=== PATIENT | male | born 1970 | race Asian ===

== ENCOUNTER 2019-12-29 19:39 | Inpatient (IN) | payer OTHER ==
[~2019-12-29] VITALS: Ht 167.6 cm; Wt 59.0 kg
--- NOTE | 2019-12-29 19:39 | NUR ---
Placed in room 03 . Placed on surveillance system monitor, blood pressure machine and pulse oximeter. To gown for exam. Side rails up.
--- NOTE | 2019-12-29 19:40 | NUR ---
ER Dr. Brizuela at bedside examining patient.
--- NOTE | 2019-12-29 19:40 | NUR ---
#20 gauge angiocatheter placed to R wrist. Use of asceptic technique. Tegaderm placed over site. Blood return noted. Blood for lab drawn from site. Flushed with 10 mL of normal saline. No evidence of infiltration noted. Patient tolerated well.
[2019-12-29 19:42] VITALS: BP_SYST 163
--- NOTE | 2019-12-29 20:00 | NUR ---
Patient BIB ACLS from [facility] with complaints of chest pain, which was communicated through eye blinking according to his . Patient is nonverbal with history of cerebral infarct, tracheostomy tube s/p respiratory distress, quadriplegia, and encephalopathy. Patient also has a recent history of pneumonia, which is treated with Rx for Levaquin. PEG tube to abdomen is also noted. Even chest rise and fall with respirations. Will continue to monitor.
[2019-12-29] MEDS ORDERED: CLONIDINE PATCH TD (20:14)
[2019-12-29] MEDS ORDERED: ASA81 GT (20:14)
[2019-12-29] MEDS ORDERED: CHLO237L3 DT (20:14)
[2019-12-29] MEDS ORDERED: ACID1CAP GT (20:14)
[2019-12-29] MEDS ORDERED: [UNRECOGNIZED DRUG - REMARK] GT (20:14)
[2019-12-29] MEDS ORDERED: ATROVENT IH ×2 (20:14)
[2019-12-29] MEDS ORDERED: HYDR-4037 GT (20:14)
[2019-12-29] MEDS ORDERED: CAT.1 GT (20:14)
[2019-12-29] MEDS ORDERED: ALBU2.5V7 INH ×2 (20:14)
[2019-12-29] MEDS ORDERED: CARV25TA55 GT ×2 (20:14)
[2019-12-29] MEDS ORDERED: MULT-976 GT (20:14)
[2019-12-29] MEDS ORDERED: TYLL650 GT (20:14)
[2019-12-29] MEDS ORDERED: ASCO500S10 GT (20:14)
[2019-12-29] MEDS ORDERED: LANS15CA14 GT (20:14)
[2019-12-29] MEDS ORDERED: DOCU-144 GT (20:14)
--- NOTE | 2019-12-29 20:17 | NUR ---
Medication reconciliation completed with information provided by list from facility. Any prior medication reconciliation on file was reviewed and corrected.
[2019-12-29 20:18] LABS: HEMATOCRIT 39.6 % (36-54); HEMOGLOBIN 13.2 g/dL (14.0-18.0); MEAN CORPUSCULAR HEMOGLOBIN 29 pg (27-31); MEAN CORPUSCULAR HGB CONC 33 % (32-36); MEAN CORPUSCULAR VOLUME 86 fL (79.0-98.0); PLATELET COUNT (AUTO) 443 K/uL (130-430); RED BLOOD CELL COUNT(AUTO) 4.62 MIL/uL (4.2-6.2); RED CELL DISTRIBUTION WIDTH 13.6 % (9.0-15.0); WHITE BLOOD COUNT (AUTO) 15.7 K/uL (4.8-10.8)
[2019-12-29 20:25] LABS: CALCIUM 8.4 mg/dL (8.4-11.0); CREATININE 0.85 mg/dL (0.55-1.30); POTASSIUM 3.7 mmol/L (3.5-5.1)
[2019-12-29 20:26] LABS: PROTHROMBIN TIME 9.9 SECS (9.5-12.5)
[2019-12-29 20:30] LABS: ALBUMIN 3.3 g/dL (3.4-4.8); TOTAL BILIRUBIN 0.2 mg/dL (0.0-1.0)
[2019-12-29 20:35] LABS: BAND % (MANUAL) 1 % (0-6); BASOPHILS % (MANUAL) 0 % (0-2); EOSINOPHILS % (MANUAL) 2 % (0-7); LYMPHOCYTES % (MANUAL) 14 % (20-46); METAMYELOCYTES % 1 % (0-0); MONOCYTES % (MANUAL) 5 % (0-11)
[2019-12-29 20:53] LABS: BILIRUBIN,URINE NEGATIVE (NEGATIVE); BLOOD, URINE NEGATIVE (NEGATIVE); CLARITY/URINE CLEAR (CLEAR); COLOR,URINE YELLOW (YELLOW); GLUCOSE,URINE NEGATIVE (NEGATIVE); KETONES,URINE NEGATIVE (NEGATIVE); LEUKOCYTE ESTERASE ,URINE NEGATIVE (NEGATIVE); NITRITE, URINE NEGATIVE (NEGATIVE); PH,URINE 6.5 (5.0-8.0); PROTEIN URINE TRACE (NEGATIVE); UROBILINOGEN,URINE 0.2 (0.2-1.0)
[2019-12-29 20:59] LABS: RBC,URINE 0-3 /HPF (0-3)
[2019-12-29 21:00] LABS: BACTERIA,URINE FEW /HPF (None Seen); WBC,URINE 0-3 /HPF (0-3)
--- NOTE | 2019-12-29 21:16 | NUR ---
nuclear medicine technologist at bedside for xray.
--- NOTE | 2019-12-29 23:44 | NUR ---
ADMISSION NOTE Received patient from ER via gurney. Patient admitted with diagnosis of Pneumonia. Patient is awake, alert, non-verbal. Patient oriented to hospital room, call light, toileting, pain management and safety-teach back done. Patient informed that JAIRO Jain will be primary nurse and that their room number is 103B. Personal belongings checked and Belongings List documented. Call light within reach.
[2019-12-29 23:50] VITALS: BP_SYST 159
[2019-12-30] VITALS (7 sets, daily range): BP systolic 123–159
--- NOTE | 2019-12-30 | NUR ---
pt.admitted via the er-depot.from the hospital/facility:dejon cevallos;admit dxa;pna.pt.presents quadraplegic status.pt.presents trach;portex;#7.r/t has set up o2 therapy via t-bar;rate;3l/min w humidied air.o2sat%=98%.pt.asphasic.pt.presents g-tube;intact;dsg intact.pt.presents iv access intact;patent;location rt.hand.i have noted the labs;wnl.i have noted the 's admit orders;pt.to receive saravanan administration:g-tube feed;VITAL.IV FLUIDS;D5/45NS W K+20MEQ'S,ABXA;VANCOMYCIN/ZOSYN.PT. CUtANeOus INTeGRITY assessed;pt.presents x3 wounds;rt.buttocks:scars;old healed.sacrum:wound;denuded skin/photos taken to v/s assessed:b/p values elevated;to apprise .call light/telephone placed w/in reach of the pt/
[2019-12-30] MEDS ORDERED: PIPERACILLIN/TAZOBACTAM 3.375 GM/VIAL (ZOSYN) IV ONE ×2 (00:17→06:14)
[2019-12-30] MEDS ORDERED: KCL 20 mEq in D5/0.45NS 1000mL 1,000 ML IV ONE (00:17)
[2019-12-30] MEDS ORDERED: VANCOMYCIN HCL 1000 MG/VIAL IV ONE (00:17)
[2019-12-30] MEDS ORDERED: VANCOMYCIN HCL 1 GM/NS PREMIX 250 ML IV SCH (00:30)
[2019-12-30] MEDS ORDERED: amLODIPine BESYLATE 10 MG TABLET GT ONE (01:00)
--- NOTE | 2019-12-30 01:00 | NUR ---
pt.assessed.i have initiated the g-tube feed;vital:rate:60ml/hr.i have initiated the administration iv fluids via peripheral access;RT.HAND.rATE;60ML/HR.i have initiated th administration;abx;zosyn/vancomycin ivpb.pt.assessed for cleanliness. pt,cleaned. returned the page.i apprised of the pt's b/p values;elevated. had ordered;norvasc; 10mg via g-tube ax1 clonidine;0.1mg via g-tubecsb/.p>150.i have administered the norvasc;[id number] the b;p values.
[2019-12-30] MEDS: PIPERACILLIN/TAZO 3.375/DEX-IS 50 ML IV SCH ×4 (01:25→17:27)
[2019-12-30] MEDS: KCL 20 mEq in D5/0.45NS 1000mL 1,000 ML IV SCH ×2 (01:25→11:26)
--- NOTE | 2019-12-30 02:00 | NUR ---
pt.assessed.pt assessed for cleanliness.-pt.repositioned.g-tube intact;patent:g-tube feed infusing.iv access intact;patent iv fluids infusing. condom-cath in place;urine content present.general status stable.respiratory status stable;o2-sat%=98%.i have attended to the oral trach care suction.call light/telephone placed w/in reach of the pt.
--- NOTE | 2019-12-30 04:00 | NUR ---
pt.assessed.pt.presents quiescent affect;calm,somnolent.per flacc;pain mgx;pt.absent facial grimaces/body posturing.g-tube intact;patent g-tube feed infusing.iv access line intact;patent iv fluids infusing.i have attended to the oral/trach care/ suction.general status stable.respiratory status stable;o2-sat%=98%call light/telephone placed w/in reach of the pt.
--- NOTE | 2019-12-30 06:16 | NUR ---
pt.assessed.v/s assessed;values w/in normal limits.b/p values decreased post the administration of the norvasc;10mg. pt.assessed for cleanliness.pt.repositioned.g-tube intact;patent;g-tube feed infusing;residuals:5mls.iv access intact; patent iv fluids infusing.condom cath intact;urine content present.general status stable.respiratory status stable.02- sat%=98%.call light/telephone placed w/in reach of the pt.per flacc;pain mgx;pt.absent facial grimaces/body posturing.
--- NOTE | 2019-12-30 06:46 | NUR ---
Nutrition Update Denzel Scale 11 noted. Pt admitted for Pneumonia Diet: Vital AF 1.2 at 60ml/hr, FWF 30ml via GT BMI: 21 kg/m2 RD to follow per nutrition care standards.
--- NOTE | 2019-12-30 07:30 | NUR ---
OPENING NOTES: RECEIVED PATIENT FROM ABORIGINAL COMMUNITY COUNCIL MEMBER NURSE. PATIENT IS AWAKE AND ALERT x1 LAYING DOWN IN BED. PATIENT IS TOLERATING OXYGEN ON T-BAR AT 3L. NO SIGNS OF DISTRESS OR SHORTNESS OF BREATH NOTED. PATIENT WAS SUCTIONED AND TOLERATED IT WELL. IV SITE IS PATENT WITH NO SIGNS OF INFILTRATION NOTED. CONDOM CATHETER INTACT AND DRAINING BY GRAVITY. G-TUBE INTACT WITH CLEAN, DRY DRESSING AND RUNNING FEEDING ORDERED. PATIENT IN STABLE CONDITION. SAFETY, FALL, AND ASPIRATION PRECAUTIONS ARE IN PLACE. BED IS LOCKED IN LOWEST POSITION WITH CALL LIGHT IN REACH. WILL CONTINUE TO MONITOR PATIENT FOR ANY CHANGES.
[2019-12-30] MEDS: LevALBUTEROL HCL 1.25 MG/0.5 ML *CONC.* VIAL.NEB (XOPENEX CONC.) INH PRN ×2 (09:28→13:19)
--- NOTE | 2019-12-30 10:17 | NUR ---
RN ROUNDS: PATIENT IS AWAKE AND ALERT x1 LAYING DOWN IN BED. PATIENT IS TOLERATING OXYGEN AT 5 L VIA T-BAR. NO SIGNS OF DISTRESS OR SHORTNESS OF BREATH NOTED. PATIENT IN STABLE CONDITION. WILL CONTINUE TO MONITOR PATIENT FOR ANY CHANGES.
--- NOTE | 2019-12-30 11:32 | NUR ---
Dietitian Recommendations *Recommend: Vital AF 1.2 at 60ml/hr, Kulwinder BID, FWF 150ml Q6H via GT Provides: 1888 kcal, 113 gm protein and 1768ml free water daily. Meets: 94% of upper end of estimated calorie needs and 115% of upper end of estimated protein needs. Please see Nutritional Assessment for details. IMTIAZ, RD
--- NOTE | 2019-12-30 12:10 | NUR ---
RN ROUNDS: PATIENT IS AWAKE AND ALERT x1 LAYING DOWN IN BED. FAMILY AT BEDSIDE. PATIENT WAS SUCTIONED AND TOLERATED IT WELL. NO SIGNS OF DISTRESS OR SHORTNESS OF BREATH NOTED. PATIENT IN STABLE CONDITION. WILL CONTINUE TO MONITOR PATIENT FOR ANY CHANGES.
--- NOTE | 2019-12-30 14:14 | NUR ---
RN ROUNDS: PATIENT IS AWAKE AND ALERT x1 LAYING DOWN IN BED. FAMILY AT BEDSIDE. PATIENT WAS SUCTIONED AND TOLERATED IT WE.. NO SIGNS OF DISTRESS OR SHORTNESS OF BREATH NOTED. PATIENT IS TOLERATING OXYGEN AT 3L NASAL CANNULA. IV SITE PATENT WITH NO SIGNS OF INFILTRATION. PATIENT IN STABLE CONDITION. WILL CONTINUE TO MONITOR PATIENT FOR ANY CHANGES.
--- NOTE | 2019-12-30 14:20 | NUR ---
WOUND EVALUATION: Wound Consult received from Dr. Pinzon. Thank you Dr. Pinzon for the consult. Patient received in a Rhodelia Bed with an IsoFlex MEREDITH mattress with low air loss therapy initiated, awake, alert, non-verbal. Patient is unable to turn in bed independently. Denzel Score is an 11. Past Medical History: Cerebrovascular Accident, Hypertension, Chronic Respiratory Failure, Encephalopathy, G-tube, Tracheostomy. Recent Labs: WBC 15.7, RBC 4.62, hemoglobin 13.2, hematocrit 39.6, BUN 23, creatinine 0.85, GFR 102, glucose 102, albumin 3.3, PTT 25.2. Intrinsic factors that delay wound healing: Chronic Respiratory Failure, Encephalopathy, Hypoalbuminemia. Extrinsic factors that delay wound healing: Decreased mobility. Wound Assessment: 1. Right buttock: Wound, present on admission. Wound bed has 100% black scab. No odor, no drainage. Periwound intact. Small portion of scab is flaking off with intact skin underneath. Wound measures 2.5 cm x 1.5 cm. Recommend: Cover site with 4x4 foam dressing. Apply moisture barrier cream in between dressing and perianal area. Change dressing and assess site to 24 hours. 2. Left buttock near ischium: Scar tissue, present on admission. Recommend: Cleanse involved area with mild soap and water. Pat dry. Apply moisture barrier cream to involved area. Perform site care 4 times a day, and as needed for soiling. Also recommend: Reposition patient side to side only every 2 hours with pillow support and off-load pressure areas with pillows for pressure re-distribution. Offload, elevate and float bilateral heels with pillows. Perform skin care and monitor skin integrity Q shift. Use moisture barrier cream on buttocks and other moisture susceptible areas QID and as needed for soiling. Maintain patient on a low air-loss mattress.
[2019-12-30] MEDS ORDERED: cloNIDine HCL 0.1 MG TABLET GT PRN (15:15)
[2019-12-30] MEDS ORDERED: IPRATROPIUM BROM 0.5 MG/2.5 ML VIAL.NEB (ATROVENT) INH PRN (15:15)
[2019-12-30] MEDS ORDERED: ACETAMINOPHEN 650 MG/20.3 ML UDC GT PRN (15:15)
--- NOTE | 2019-12-30 16:08 | NUR ---
RN ROUNDS: PATIENT IS AWAKE AND ALERT x1 LAYING DOWN IN BED. NO SIGNS OF DISTRESS OR SHORTNESS OF BREATH NOTED. PATIENT IS TOLERATING OXYGEN ON 3 L NASAL CANNULA. PATIENT IN STABLE CONDITION. WILL CONTINUE TO MONITOR PATIENT FOR ANY CHANGES.
--- NOTE | 2019-12-30 18:41 | NUR ---
CLOSING NOTES: PATIENT IS AWAKE AND ALERT x1 LAYING DOWN IN BED. PATIENT IS TOLERATING OXYGEN ON T-BAR AT 3L. NO SIGNS OF DISTRESS OR SHORTNESS OF BREATH NOTED. PATIENT WAS SUCTIONED AND TOLERATED IT WELL. IV SITE IS PATENT WITH NO SIGNS OF INFILTRATION NOTED. CONDOM CATHETER INTACT AND DRAINING BY GRAVITY. G-TUBE INTACT WITH CLEAN, DRY DRESSING AND RUNNING FEEDING ORDERED. PATIENT IN STABLE CONDITION. SAFETY, FALL, AND ASPIRATION PRECAUTIONS REMAINED IN PLACE THROUGHOUT THE SHIFT. BED IS LOCKED IN LOWEST POSITION WITH CALL LIGHT IN REACH. WILL ENDORSE PATIENT CARE TO ONCOMING ELECTRONIC COMMERCE SPECIALIST NURSE.
--- NOTE | 2019-12-30 19:30 | NUR ---
OPENING NOTE Received patient, resting in bed with eyes open. He is nonverbal. Nonlabored breathing on T-bar at 3L. IVF infusing via right hand IV, G-tube feeding running at 60 ml/hr. He has condom cath with drainage bag to gravity. He is on MEREDITH mattress, bed is locked in lowest position, side rails up 3x, bed alarm on and call light w/in reach.
--- NOTE | 2019-12-30 19:31 | NUR ---
Temp reassess Temp is 99.2 (temporal scan), it decreased from 99.4. Provided additional cooling measures; ice packs. Will continue to monitor.
[2019-12-30] MEDS: LANSOPRAZOLE 30 MG CAPSULE.DR GT SCH (21:30)
[2019-12-30] MEDS: CHLORHEXIDINE GLUCONATE 15 ML/DOSE, 480 ML MM SCH (21:30)
[2019-12-30] MEDS: CARVEDILOL 25 MG TABLET (COREG) GT SCH (21:30)
[2019-12-30] MEDS: LACTOBACILLUS RHAMNOSUS GG 1 CAP CAPSULE GT SCH (21:30)
--- NOTE | 2019-12-30 21:30 | NUR ---
Medications Due medications given via G-tube; 20 ml of residual was noted and returned. Patient was provided with oral care and suction.
[2019-12-30] MEDS: ENOXAPARIN SODIUM 40 MG/0.4 ML SYRINGE SUBCUT SCH (21:32)
[2019-12-30] MEDS: hydrALAZINE HCL 10 MG TABLET GT SCH (22:52)
--- NOTE | 2019-12-30 22:55 | NUR ---
Medication, Afebrile Due medication, Apresoline 100 mg given as ordered. B/P 130/89 HR 83 and temp 98.9
[2019-12-30] MEDS ORDERED: hydrALAZINE HCL 25 MG TABLET ONE ×2 (23:03→23:07)
[2019-12-31] MEDS: PIPERACILLIN/TAZO 3.375/DEX-IS 50 ML IV SCH ×4 (00:48→17:38)
--- NOTE | 2019-12-31 00:51 | NUR ---
Antibiotic Administered Zosyn, infusing well, patient tolerating.
[2019-12-31 01:30] VITALS: BP_SYST 129
[2019-12-31] MEDS: KCL 20 mEq in D5/0.45NS 1000mL 1,000 ML IV SCH ×2 (02:25→15:56)
--- NOTE | 2019-12-31 02:33 | NUR ---
IVF IVF bag is empty; Hung new bag of IVF and infusing as ordered at 75 ml/hr. Patient was repositioned and turned. Oral and tracheal suction provided.
--- NOTE | 2019-12-31 04:33 | NUR ---
G-tube feeding Replaced empty feeding bottle with new bottle and tubing. 10 ml of residual was noted and returned; patient tolerating feeding. Patient was repositioned and turned.
[2019-12-31] MEDS: CARVEDILOL 25 MG TABLET (COREG) GT SCH ×3 (05:07→21:19)
[2019-12-31] MEDS: hydrALAZINE HCL 10 MG TABLET GT SCH (05:08)
--- NOTE | 2019-12-31 05:10 | NUR ---
Zosyn, meds Zosyn antibiotic was administered and infusing well. Sceduled blood pressure medications given, B/P 139/90, HR 82. Afebrile, temp 98.7
[2019-12-31] MEDS ORDERED: hydrALAZINE HCL 25 MG TABLET ONE (05:22)
[2019-12-31] MEDS: ASCORBIC ACID 500 MG TABLET GT SCH (09:00)
[2019-12-31] MEDS: [UNRECOGNIZED DRUG - OTHER] GT SCH (09:00)
[2019-12-31] MEDS: MULTIVITAMINS TAB 1 TABLET GT SCH (09:00)
[2019-12-31] MEDS: DOCUSATE SODIUM 100 MG/10 ML UDC GT SCH (09:00)
[2019-12-31] MEDS: LANSOPRAZOLE 30 MG CAPSULE.DR GT SCH ×2 (09:00→20:10)
[2019-12-31] MEDS: ASPIRIN 81 MG TAB.CHEW GT SCH (09:00)
[2019-12-31] MEDS: LACTOBACILLUS RHAMNOSUS GG 1 CAP CAPSULE GT SCH ×2 (09:00→20:10)
[2019-12-31 11:05] LABS: CREATININE 0.87 mg/dL (0.55-1.30); POTASSIUM 3.4 mmol/L (3.5-5.1)
[2019-12-31 11:12] LABS: WHITE BLOOD COUNT (AUTO) 13.1 K/uL (4.8-10.8)
[2019-12-31 11:13] LABS: BASOPHILS % (AUTO) 0.2 % (0.0-2.0); EOSINOPHILS # (AUTO) 0.3 K/uL (0.0-0.4); HEMATOCRIT 36.7 % (36-54); LYMPHOCYTES # (AUTO) 1.4 K/uL (1.0-5.5); LYMPHOCYTES % (AUTO) 10.8 % (20.5-51.5); MEAN CORPUSCULAR HEMOGLOBIN 28 pg (27-31); MEAN CORPUSCULAR HGB CONC 33 % (32-36); MEAN CORPUSCULAR VOLUME 87 fL (79.0-98.0); MONOCYTES # (AUTO) 0.7 K/uL (0.0-1.0); MONOCYTES % (AUTO) 5.1 % (1.7-9.3); NEUTROPHILS # (AUTO) 10.8 K/uL (1.8-7.7); NEUTROPHILS % (AUTO) 81.9 % (40.0-70.0); PLATELET COUNT (AUTO) 333 K/uL (130-430); RED BLOOD CELL COUNT(AUTO) 4.21 MIL/uL (4.2-6.2); RED CELL DISTRIBUTION WIDTH 13.7 % (9.0-15.0)
--- NOTE | 2019-12-31 11:17 | NUR ---
[facility]NTIME[facility] PLEASE SEE PAPER CHARTING.
[2019-12-31 12:00] VITALS: BP_SYST 121
--- NOTE | 2019-12-31 12:23 | NUR ---
RN ROUNDS: PATIENT IS AWAKE LAYING DOWN IN BED. PATIENT TOLERATING OXYGEN ON T-BAR AT 3L WITH NO SIGNS OF DISTRESS OR SHORTNESS OF BREATH NOTED. IV SITE IS PATENT WITH NO SIGNS OF DISTRESS OR SHORTNESS OF BREATH NOTED. G-TUBE INTACT AND RUNNING FEEDING ORDERED. CONDOM CATHETER INTACT AND DRAINING BY GRAVITY. PATIENT IN STABLE CONDITION. SAFETY, FALL, AND ASPIRATION PRECAUTIONS ARE IN PLACE. BED LOCKED IN LOWEST POSITION WITH CALL LIGHT IN REACH. WILL CONTINUE TO MONITOR PATIENT FOR ANY CHANGES.
--- NOTE | 2019-12-31 14:21 | NUR ---
RN ROUNDS: PATIENT IS AWAKE LAYING DOWN IN BED. NO SIGNS OF DISTRESS OR SHORTNESS OF BREATH NOTED. PATIENT IS TOLERATING OXYGEN ON 5 L ON THE T-BAR. IV SITE IS PATENT AND RUNNING FLUIDS ORDERED. PATIENT IN STABLE CONDITION. WILL CONTINUE TO MONITOR PATIENT FOR ANY CHANGES.
[2019-12-31 16:14] VITALS: BP_SYST 148
--- NOTE | 2019-12-31 16:22 | NUR ---
RN ROUNDS: PATIENT IS AWAKE LAYING DOWN IN BED. NO SIGNS OF DISTRESS OR SHORTNESS OF BREATH NOTED. PATIENT CHANGED, AND CLEANED WITH WOUND CARE PROVIDED AND SUCTIONED. PATIENT TOLERATED IT WELL. PATIENT IN STABLE CONDITION. WILL CONTINUE TO MONITOR PATIENT FOR ANY CHANGES
[2019-12-31] MEDS ORDERED: POTASSIUM CHLORIDE 20 MEQ/PKT PACKET GT ONE (18:45)
--- NOTE | 2019-12-31 18:45 | NUR ---
CLOSING NOTES: PATIENT IS AWAKE AND ALERT x1 LAYING DOWN IN BED. PATIENT IS TOLERATING OXYGEN ON T-BAR AT 5L. NO SIGNS OF DISTRESS OR SHORTNESS OF BREATH NOTED. PATIENT WAS SUCTIONED AND TOLERATED IT WELL. IV SITE IS PATENT WITH NO SIGNS OF INFILTRATION NOTED. CONDOM CATHETER INTACT AND DRAINING BY GRAVITY. G-TUBE INTACT WITH CLEAN, DRY DRESSING AND RUNNING FEEDING ORDERED. PATIENT IN STABLE CONDITION. SAFETY, FALL, AND ASPIRATION PRECAUTIONS REMAINED IN PLACE THROUGHOUT THE SHIFT. BED IS LOCKED IN LOWEST POSITION WITH CALL LIGHT IN REACH. WILL ENDORSE PATIENT CARE TO ONCOMING DUMB WAITER OPERATOR NURSE.
--- NOTE | 2019-12-31 19:45 | NUR ---
OPENING NOTES Received report from Priya. Patient is resting in bed, awake, breathing evenly and nonlabored on TBAR with oxygen at 5L. Patient has an IV on the right hand 20g, patent and benign, no s/s of infection or infiltration at this time, IVF running, GT running, patient is tolerating them well. Patient has a condom cath in place, draining by gravity. Educated patient on plan of care, fall/safety/aspiration precautions, patient unable to state understanding due to being nonverbal. Bed is locked, armed, and at lowest position, will continue to monitor. Addendum: 01/01/20 at 0917 by Pacheco Dawkins RN Patient is resting in bed, awake, breathing evenly and nonlabored on TBAR with oxygen at 3L.
[2019-12-31 20:00] VITALS: BP_SYST 146
[2019-12-31] MEDS: CHLORHEXIDINE GLUCONATE 15 ML/DOSE, 480 ML MM SCH (20:10)
[2019-12-31] MEDS: ENOXAPARIN SODIUM 40 MG/0.4 ML SYRINGE SUBCUT SCH (20:13)
--- NOTE | 2019-12-31 20:13 | NUR ---
MEDICATIONS/ROUNDS Patient is resting in bed, awake, breathing evenly and nonlabored on TBAR with oxygen at 3L. Educated patient on meidcations, patient unable to state understanding due to being nonverbal. Adminstered medicaitons, patient tolerated them well. No s/s of distress at this time, no other needs at this time. Fall/safety/aspiration precautions, will continue to monitor.
[2019-12-31] MEDS: hydrALAZINE HCL 25 MG TABLET GT SCH (21:19)
--- NOTE | 2019-12-31 22:00 | NUR ---
MEDICATIONS/ROUNDS Patient is resting in bed, awake, breathing evenly and nonlabored on TBAR with oxygen at 3L. Educated patient on medications, patient unable to state understanding due to being nonverbal. Administered medications, patient tolerated them well. No s/s of distress at this time, no other needs at this time. Fall/safety/aspiration precautions, will continue to monitor.
[2020-01-01] VITALS: BP_SYST 131
[2020-01-01] MEDS: PIPERACILLIN/TAZO 3.375/DEX-IS 50 ML IV SCH ×4 (00:28→17:13)
[2020-01-01] MEDS: KCL 20 mEq in D5/0.45NS 1000mL 1,000 ML IV SCH ×2 (00:32→14:53)
--- NOTE | 2020-01-01 00:34 | NUR ---
MEDICATIONS/ROUNDS Patient is resting in bed, awake, breathing evenly and nonlabored on TBAR with oxygen at 3L. Educated patient on medication, patient unable to state understanding due to being nonverbal. Administered medication, patient tolerated them well. No s/s of distress at this time, no other needs at this time. Fall/safety/aspiration precautions, will continue to monitor.
--- NOTE | 2020-01-01 02:00 | NUR ---
ROUNDS Patient is resting in bed, eyes closed, breathing evenly and nonlabored on TBAR with oxygen at 3L. No s/s of distress at this time, no other needs at this time. Fall/safety/aspiration precautions, will continue to monitor.
--- NOTE | 2020-01-01 04:05 | NUR ---
ROUNDS Patient is resting in bed, eyes closed, breathing evenly and nonlabored on TBAR with oxygen at 3L. No s/s of distress at this time, no other needs at this time. Fall/safety/aspiration precautions.
[2020-01-01] MEDS: CARVEDILOL 25 MG TABLET (COREG) GT SCH ×3 (05:38→20:41)
[2020-01-01] MEDS: hydrALAZINE HCL 25 MG TABLET GT SCH ×3 (05:39→20:41)
--- NOTE | 2020-01-01 06:10 | NUR ---
CLOSING NOTES Patient is resting in bed, eyes closed, breathing evenly and nonlabored on TBAR with oxygen at 3L. Educated patient on medications, patient unable to state understanding due to being nonverbal. Administered medications, patient tolerated them well. No s/s of distress at this time, no other needs at this time. Fall/safety/aspiration precautions, will continue endorse care to morning shift RN.
[2020-01-01 07:02] LABS: BASOPHILS % (AUTO) 0.4 % (0.0-2.0); EOSINOPHILS # (AUTO) 0.3 K/uL (0.0-0.4); EOSINOPHILS % (AUTO) 2.6 % (0.0-4.0); HEMATOCRIT 34.7 % (36-54); HEMOGLOBIN 11.4 g/dL (14.0-18.0); LYMPHOCYTES # (AUTO) 1.4 K/uL (1.0-5.5); LYMPHOCYTES % (AUTO) 12.5 % (20.5-51.5); MEAN CORPUSCULAR HEMOGLOBIN 29 pg (27-31); MEAN CORPUSCULAR HGB CONC 33 % (32-36); MEAN CORPUSCULAR VOLUME 87 fL (79.0-98.0); MONOCYTES # (AUTO) 0.7 K/uL (0.0-1.0); MONOCYTES % (AUTO) 6.4 % (1.7-9.3); NEUTROPHILS % (AUTO) 78.1 % (40.0-70.0); PLATELET COUNT (AUTO) 319 K/uL (130-430); RED BLOOD CELL COUNT(AUTO) 3.98 MIL/uL (4.2-6.2); RED CELL DISTRIBUTION WIDTH 14.1 % (9.0-15.0); WHITE BLOOD COUNT (AUTO) 11.5 K/uL (4.8-10.8)
[2020-01-01 07:06] LABS: CALCIUM 7.8 mg/dL (8.4-11.0); CREATININE 0.85 mg/dL (0.55-1.30); POTASSIUM 3.8 mmol/L (3.5-5.1)
--- NOTE | 2020-01-01 07:30 | NUR ---
PATIENT NON VERBAL. BOTH EYES ARE OPEN. NO SOB NOR PAIN NOTED. LUNGS BILATERAL DIMINISHED AT THE BASES. HAS IV ACCESS ON THE RT HAND #20. WITH D51/2 NS +20 KCL MEQ AT 75 CC/HR INFUSING ON WELL. HAS G TUBE AT 60CC/HR INFUSING ON WELL. NO RESIDUAL NOTED.
[2020-01-01 08:17] VITALS: BP_SYST 127
[2020-01-01] MEDS: [UNRECOGNIZED DRUG - OTHER] GT SCH (09:00)
--- NOTE | 2020-01-01 09:00 | NUR ---
PATIENT HAD T BAR WITH OXYGEN AT 5 LITERS. NO SOB NOR PAIN NOTED.
[2020-01-01] MEDS: LANSOPRAZOLE 30 MG CAPSULE.DR GT SCH ×2 (10:41→20:41)
[2020-01-01] MEDS: ASCORBIC ACID 500 MG TABLET GT SCH (10:41)
[2020-01-01] MEDS: ASPIRIN 81 MG TAB.CHEW GT SCH (10:41)
[2020-01-01] MEDS: LACTOBACILLUS RHAMNOSUS GG 1 CAP CAPSULE GT SCH ×2 (10:41→20:40)
[2020-01-01] MEDS: MULTIVITAMINS TAB 1 TABLET GT SCH (10:41)
[2020-01-01] MEDS: DOCUSATE SODIUM 100 MG/10 ML UDC GT SCH (10:41)
--- NOTE | 2020-01-01 10:43 | NUR ---
DUE MEDICATION GIVEN ORDERED VIA G TUBE. NO RESIDUAL NOTED.
[2020-01-01 12:00] VITALS: BP_SYST 139
--- NOTE | 2020-01-01 12:59 | NUR ---
Filler Shredding Machine Loader: Met with pt to conduct a DCPA. DIRECTOR CHECK introduced self to pt. who just smiled. When DIRECTOR CHECK purnima talking to her, pt. just smiled. She was able to confirm she lives at [facility]. She did not know her son's phone number. DIRECTOR CHECK looked it up, son Claus Arita, . Leonor Tubbs stated son does not want to marshal consent for a medical procedure. DIRECTOR CHECK will remain available as needed. Addendum: 01/01/20 at 1448 by Cary Canales DIRECTOR CHECK The above entry is for a different patient. Please disregard. Filler Shredding Machine Loader: Conduct a DCPA. DIRECTOR CHECK went to the Rn. station to inquire about pt. and was told by BERTIN Nicholson that pt. is on a Trac, nonverbal. DIRECTOR CHECK will call family. DIRECTOR CHECK called and spoke to pts. , Kelsey Caceres she was able to converse in Zimbabwean, but stated her micah speak at the moment, but he just speaks Turkmen. stated she wanted home once he is discharged. She does not want him to go back to [facility]. also stated pt. is on a Trach and she would like for him to be taken off. DIRECTOR CHECK asked if she wanted to speak to the Dr. and she responded that she did. DIRECTOR CHECK told her how to inquire. She is to call the hospital and ask to speak to pts. Rn. Today his Rn is Lucero to share her concern and ask about pts. prognosis. . Pts stated pt. has double vision. Additionally, she would like for the pt. be taken of the trach. DIRECTOR CHECK mentioned that she should speak to pts. Dr. Dr. Pinzon to talk about pts. medical condition and prognosis. During this time she can inquire about pts. Trach. stated she would like for pt. to go to her home and not to go back to [facility]. DIRECTOR CHECK asked daughter Roxie how long pt. has been at [facility]. She said longer than a couple of months. Both her and her mom want pt. home. DIRECTOR CHECK asked them to speak to the Rn. Barker and Dr. Pinzon once again. DIRECTOR CHECK thanked them for their input and will remain available as needed. DIRECTOR CHECK shared info re. pt. and families wishes with MATHEW Thompson. She stated because pt. is on a trach and t-bar, he will be returning to [facility].
--- NOTE | 2020-01-01 13:45 | NUR ---
DC Planning: Per dr. Pinzon, given dcp order for pt returning back to sub acute if all cultures are resulted and reporting back to the md for discharge order. JAIRO Barker made aware.
--- NOTE | 2020-01-01 15:00 | NUR ---
DRESSING CHANGED AT THE [facility]. APPLY Z GUARD ON IT. [employer] DRESSING CHANGED. PHOTO TAKEN
--- NOTE | 2020-01-01 16:18 | NUR ---
Discharge Planning: DCP faxed pt referral to [facility] (f [phone] p [phone]) DCP to follow up. Addendum: 01/01/20 at 1714 by Debby WONG Jefferson from [facility] (f [phone] p [phone]) patient accepted to [facility]
--- NOTE | 2020-01-01 16:22 | NUR ---
PATIENT REPOSITIONED TO SIDES.
[2020-01-01 16:26] VITALS: BP_SYST 117
--- NOTE | 2020-01-01 18:48 | NUR ---
PATIENT SUCTION VIA T BAR AND MOUTH OFTEN. MADE COMFORTABLE.
--- NOTE | 2020-01-01 19:01 | NUR ---
ENDORSED TO DEANN TRISTAN
--- NOTE | 2020-01-01 19:15 | NUR ---
change of shift.pt.presents trach;t-bar;rate;2l/min.pt.presents g-tube;g-tube feed infusing.pt.presents iv access intact;patent; iv fluids infusing.pt.presents condom-cath intact;patent;urine content present.pt.asphasic.affect;flat.pt.presents quadraplegic neuro status.call light/telephone w/in reach of the pt.
[2020-01-01 20:00] VITALS: BP_SYST 170
--- NOTE | 2020-01-01 20:00 | NUR ---
pt.assessed.v/s assessed;values w/in normal limits;o2-sat%=94%.i have attended to the oral/trach care.i have attended to the oral/trach suction.pt.assessed for cleanliness.pt.repositioned.g-tube intact;patent g-tube feed infusing.iv access intact;patent iv fluids infusing.condom cath intact;patent;urine content present.general status stable.respiratory status stable.call light/ telephone placed w/in reach of the pt.
[2020-01-01] MEDS: CHLORHEXIDINE GLUCONATE 15 ML/DOSE, 480 ML MM SCH (20:40)
[2020-01-01] MEDS: ENOXAPARIN SODIUM 40 MG/0.4 ML SYRINGE SUBCUT SCH (20:43)
--- NOTE | 2020-01-01 21:00 | NUR ---
2100p medication administered via the g-tube.the medication administered absent resistance.g-tube residual;5ml.
--- NOTE | 2020-01-01 22:00 | NUR ---
pt.assessed.pt.assessed for cleanliness.pt.repositioned.i have attended to the oral/trach care.i have attended to the oral/trach suction. g-tube intact,patent;g-tube feed infusing.iv access intact;patent:iv fluids infusing.condom cath intact;patent;urine content present. o2-sat%=94%.call light/telephone placed w/in reach of the pt.
[2020-01-02] VITALS (7 sets, daily range): BP systolic 119–156
--- NOTE | 2020-01-02 | NUR ---
pt.assessed.v/s assessed;b/p values elevated.o2-sat%=88-90%.pt.assessed for cleanliness.pt.repositioned.g-tube intact;patent g-tube feed infusing.iv access intact;patent iv fluids infusing.g-tube residual noted;5ml.i have administer the g-tube flush.condom cath intact. urine content present.i have attended to the oral/trach suctioning.i have attended to the oral care/trach care.post suctioning.o2-sat%=96%.i have administered catapres;0.1mg via the g-tube to re-assess the b/p per protocol.call light/telephone placed w/in reach of the pt.
[2020-01-02] MEDS: PIPERACILLIN/TAZO 3.375/DEX-IS 50 ML IV SCH ×5 (00:32→23:29)
[2020-01-02] MEDS: cloNIDine HCL 0.1 MG TABLET GT PRN ×2 (00:32→12:27)
--- NOTE | 2020-01-02 01:00 | NUR ---
i have re-assessed the v/s note the b/p values post the administration of catapres;0.1mg via the g-tube;b/p values decreased; to continue to monitor the b/p values.
--- NOTE | 2020-01-02 02:00 | NUR ---
pt.assessed pt.assessed for cleanliness.pt.repositioned.i have attended to the oral/trach care.i have attended to the oral/trach suction.g-tub intact;patent;g-tube feed infusing.iv acces intact;patent;iv fluids infusing.condom cath intact;patent;urine content present. 02=sat%=96%.call light/telephone placed w/in reach of the pt.
--- NOTE | 2020-01-02 04:00 | NUR ---
pt.assessed.i have attended to the oral/trach suctioning.i have attended to the oral/trach care.g-tube intact;patent;i have changed the g-tube feed bottle/tubing.iv access intact;patent;iv fluids infusing i have changed the iv fluids bag.condom cath intact;patent urine content present.o2-sat%=96%.general status stable.respiratory status stable.pt.assessed for cleanliness.pt.repositioned.call light/telephone placed w/in reach of the pt.
[2020-01-02] MEDS: KCL 20 mEq in D5/0.45NS 1000mL 1,000 ML IV SCH ×2 (05:30→18:18)
[2020-01-02] MEDS: CARVEDILOL 25 MG TABLET (COREG) GT SCH ×3 (05:31→21:19)
[2020-01-02] MEDS: hydrALAZINE HCL 25 MG TABLET GT SCH ×3 (05:31→21:19)
--- NOTE | 2020-01-02 06:05 | NUR ---
pt.assessed.pt.assessed for cleanliness.pt.cleaned.pt.repositioned.i have attended to the oral/trach care/i have attended to the oral/trach suctioning.per flacc;pain mgx pat.absent facial grimaces/body posturing.g-tube intact;patent g-tube feed infusing. iv access intact;paytnt.iv fluids infusing.condom cath intact;patent;urine content present.general status stable.respiratory status stable; o2-sat%=98%.call light/telephone placed w/in reach of the pt. Addendum: 01/02/20 at 0619 by Cristobal Givens RN i have assessed the v/s pt/ to administration;apresoline/core a doses.b/p values w the range to administer: apresoline/coreg;i have administered the medications via the g-tube;no resistance.g-tube flushed w [id number].
[2020-01-02 07:12] LABS: BASOPHILS % (AUTO) 0.3 % (0.0-2.0); EOSINOPHILS # (AUTO) 0.3 K/uL (0.0-0.4); EOSINOPHILS % (AUTO) 2.8 % (0.0-4.0); HEMATOCRIT 36.8 % (36-54); HEMOGLOBIN 12.1 g/dL (14.0-18.0); LYMPHOCYTES # (AUTO) 1.5 K/uL (1.0-5.5); LYMPHOCYTES % (AUTO) 13.7 % (20.5-51.5); MEAN CORPUSCULAR HEMOGLOBIN 29 pg (27-31); MEAN CORPUSCULAR HGB CONC 33 % (32-36); MEAN CORPUSCULAR VOLUME 87 fL (79.0-98.0); MONOCYTES # (AUTO) 0.7 K/uL (0.0-1.0); MONOCYTES % (AUTO) 6.2 % (1.7-9.3); NEUTROPHILS # (AUTO) 8.7 K/uL (1.8-7.7); PLATELET COUNT (AUTO) 321 K/uL (130-430); RED BLOOD CELL COUNT(AUTO) 4.22 MIL/uL (4.2-6.2); RED CELL DISTRIBUTION WIDTH 13.9 % (9.0-15.0); WHITE BLOOD COUNT (AUTO) 11.3 K/uL (4.8-10.8)
[2020-01-02 07:13] LABS: CALCIUM 8.7 mg/dL (8.4-11.0); CREATININE 0.96 mg/dL (0.55-1.30); POTASSIUM 3.9 mmol/L (3.5-5.1)
--- NOTE | 2020-01-02 07:30 | NUR ---
OPENING NOTE Patient resting in the bed. No acute distress. Trach intact to O2 2.5L/min via T-bar. HOB elevated. GT intact, patent, on GT Vital AF 1.2 at 60ml/hr, tolerated well. Skin warm and dry to touch. IV intact to right hand, no redness, no swelling, no drainage. On KCl 20mEQ in D5 1/2 NS at 75ml/hr, infusing well.Condom cath intact, drain gravity. Safety measure maintained. Call light within reached. Bed locked in low position, side rails up, bed alarm on. Will continue to monitor.
[2020-01-02] MEDS: [UNRECOGNIZED DRUG - OTHER] GT SCH (09:00)
[2020-01-02] MEDS: DOCUSATE SODIUM 100 MG/10 ML UDC GT SCH (09:56)
[2020-01-02] MEDS: ASCORBIC ACID 500 MG TABLET GT SCH (09:56)
[2020-01-02] MEDS: LACTOBACILLUS RHAMNOSUS GG 1 CAP CAPSULE GT SCH ×2 (09:57→20:14)
[2020-01-02] MEDS: LANSOPRAZOLE 30 MG CAPSULE.DR GT SCH ×2 (09:57→20:14)
[2020-01-02] MEDS: MULTIVITAMINS TAB 1 TABLET GT SCH (09:57)
[2020-01-02] MEDS: ASPIRIN 81 MG TAB.CHEW GT SCH (09:57)
--- NOTE | 2020-01-02 09:57 | NUR ---
AM SCHEDULE MED GIVEN Patient resting in the bed. No acute distress. AM schedule med via GT given as ordered, tolerated well. Trach intact to O2 via T-bar. HOB elevated. GT intact, patent, no residual. Continue on GT feeding. IV intact, IVF infusing well. Tawana cath intact, drain gravity. Safety measure maintained. Call light within reached. Bed locked in low position, side rails up, bed alarm on. Continue to monitor.
--- NOTE | 2020-01-02 11:25 | NUR ---
ROUND Patient resting in the bed with eye closed. No acute distress. Trach intact to O2 via T-bar. HOB elevated. GT intact, patent, no residual. Continue on GT feeding, tolerated well. IV intact, IVF infusing well. Tawana cath intact, drain gravity. Safety measure maintained. Call light within reached. Bed locked in low position, side rails up, bed alarm on. Continue to monitor.
--- NOTE | 2020-01-02 12:30 | NUR ---
ST=498/102 Catapres 0.1mg given via GT as ordered. B/P=159/102, no acute distress. HOB elevated. Trach intact to O2 via T-bar. GT intact, continue on GT feeding, tolerated well. Condom cath intact, drain gravity. Safety measure maintained. Call light within reached. Bed locked in low position, side rails up, bed alarm on. Continue to monitor.
--- NOTE | 2020-01-02 13:30 | NUR ---
RECHECKED IU=653/94 Patient resting in the bed. No acute distress. Trach intact to O2 via T-bar. Continue on GT feeding, tolerated well. IV intact, IVF infusing well. Condom cath intact, drain gravity. Safety measure maintained. Call light within reached. Bed locked in low position, side rails up, bed alarm on. Continue to monitor.
--- NOTE | 2020-01-02 15:13 | NUR ---
ROUND Patient resting in the bed. No acute distress. Trach intact to O2 at 2.5L/min via T-bar. HOB elevated. GT intact, patent, no residual. GT intact, patent, continue on GT feeding, tolerated well. IV intact, IVF infusing well. Tawana cath intact, drain gravity. Safety measure maintained. Call light within reached. Bed locked in low position, side rails up, bed alarm on. Continue to monitor.
--- NOTE | 2020-01-02 16:31 | NUR ---
Nutrition F/U RD reviewed pt's current EMR record including diet Hx, physician notes, nursing notes, pertinent labs/meds/procedures, care trends, and care activity. Admission Dx: Pneumonia PMH: Cerebral infarct, respiratory failure w/ trach placement, Quadriplegia per ER MD documentation Current Diet Order/Nutrition Support: Vital AF 1.2 at 60 ml/hr, Kulwinder BID, Free Water Flush: 30ml via GT x3 days Subjective Info: Pt seen resting in bed, eyes closed w/ TF infusing as per physician order. Per EMR, pt has been tolerating TF well. Pt appeared to have thin lower extremities w/ possible muscle wasting. Pt may benefit from increase in free water flush to better meet fluid needs. Usual Diet At Home Peptamen 1.5 at 60ml/hr x 20 hrs provides: 1800 kcal Skin Integrity Comment: Denzel scale: 12; RD reviewed Sql Data Architect note 12/30/19 Current % PO N/A on EN Estimated Energy Expenditure (kcals/day) 6689-8652 kcal/day (MSJ x 1.1 x 1.2-1.3 for wound healing) Estimated Protein Required (g/day) 65-98 gm/day (1-1.5 gm/kg IBW for wound healing) Estimated Fluid Required (l/day) 2 L/day (30ml/kg IBW for wound healing) Problem/Etiology/Signs/Symptoms Increased nutrient needs r/t skin stress AEB estimated calorie and protein needs 2/2 presence of wound. *ongoing Expected Outcomes/Goals Monitor EN tolerance and intake w/ goal of pt meeting at least 75% of estimated nutritional needs, labs trending WNL, normal GI function, skin integrity/wt maintenance. Dietitian Recommendations *Recommend Vital AF 1.2 at 60ml/hr, Kulwinder BID, Free Water Flush: 150 ml Q6H via GT Provides: 1888 kcal/day, 113 gm protein/day, and 1768 ml free water/day Meets: 94% of upper end of estimated caloric needs and 115% of upper end of estimated protein needs Follow Up High Risk: F/U in 2-3 days
--- NOTE | 2020-01-02 16:39 | NUR ---
Dietitian Recommendations *Recommend Vital AF 1.2 at 60ml/hr, Kulwinder BID, Free Water Flush: 150 ml Q6H via GT Provides: 1888 kcal/day, 113 gm protein/day, and 1768 ml free water/day Meets: 94% of upper end of estimated caloric needs and 115% of upper end of estimated protein needs LP, RD Please refer to Nutrition F/U for details.
--- NOTE | 2020-01-02 17:00 | NUR ---
ROUND Patient resting in the bed. No acute distress. Trach intact to O2 at 2.5L/min via T-bar. HOB elevated. GT intact, patent, no residual. GT intact, patent, continue on GT feeding, tolerated well. IV intact, IVF infusing well. Tawana cath intact, drain gravity. at bedside. Safety measure maintained. Call light within reached. Bed locked in low position, side rails up, bed alarm on. Continue to monitor.
--- NOTE | 2020-01-02 18:56 | NUR ---
CLOSING NOTE Patient resting in the bed. No acute distress. Trach intact to O2 2.5L/min via T-bar. HOB elevated. GT intact, patent, on GT Vital AF 1.2 at 60ml/hr, tolerated well. Skin warm and dry to touch. IV intact to right hand, no redness, no swelling, no drainage, IVF infusing well. Condom cath intact, drain gravity. All needs met. at bedside. Safety measure maintained. Call light within reached. Bed locked in low position, side rails up, bed alarm on. Will endorse to night nurse.
--- NOTE | 2020-01-02 19:25 | NUR ---
OPENING NOTE RECEIVED REPORT FROM KELTON RN, PATIENT IS RESTING IN BED, FAMILY AT BEDSIDE, NO SIGNS OF ACUTE DISTRESS, AWAKE, PATIENT IS NONVERBAL, REORIENTED PATIENT TO PERSON, PLACE, TIME, AND EVENT, EVEN AND UNLABORED BREATHING ON 3L T-BAR, G-TUBE INTACT, VITAL AF 1.2 @ 60ML/HR, 5ML RESIDUAL NOTED, IV TO RIGHT HAND INTACT, PATENT/BENIGN, IV FLUIDS INFUSING WELL, CONDOM CATHETER IN PLACE AND DRAINING TO GRAVITY. SAFETY, FALL, AND ASPIRATION PRECAUTIONS IN PLACE, HOB ELEVATED, BED LOCKED AND IN LOWEST POSITION, BED ALARM ON, THREE SIDE RAILS UP, CALL LIGHT WITH PATIENT, WILL CONTINUE TO MONITOR.
[2020-01-02] MEDS: CHLORHEXIDINE GLUCONATE 15 ML/DOSE, 480 ML MM SCH (20:15)
[2020-01-02] MEDS: ENOXAPARIN SODIUM 40 MG/0.4 ML SYRINGE SUBCUT SCH (20:17)
--- NOTE | 2020-01-02 22:10 | NUR ---
RN ROUNDS PATIENT IS RESTING IN BED, NO SIGNS OF ACUTE DISTRESS, AWAKE, TOLERATING 3L T-BAR, G-TUBE INTACT AND VITAL AF 1.2 @ 60ML/HR, 0ML RESIDUAL NOTED, IV TO RIGHT HAND INTACT, IV FLUIDS INFUSING WELL, CONDOM CATHETER IN PLACE AND DRAINING TO GRAVITY. SAFETY, FALL, AND ASPIRATION PRECAUTIONS IN PLACE, HOB ELEVATED, CALL LIGHT WITH PATIENT, WILL CONTINUE TO MONITOR.
[2020-01-03] VITALS: BP_SYST 136
--- NOTE | 2020-01-03 00:45 | NUR ---
RN ROUNDS PATIENT IS RESTING IN BED, NO SIGNS OF ACUTE DISTRESS, EYES CLOSED, EVEN AND UNLABORED BREATHING ON 3L T-BAR, G-TUBE INTACT AND VITAL AF 1.2 @ 60ML/HR, IV FLUIDS INFUSING WELL, IV TO RIGHT HAND INTACT, PATENT/BENIGN, CONDOM CATHETER IN PLACE AND DRAINING TO GRAVITY. SAFETY, FALL, AND ASPIRATION PRECAUTIONS IN PLACE, HOB ELEVATED, BED LOCKED AND IN LOWEST POSITION, BED ALARM ON, THREE SIDE RAILS UP, CALL LIGHT WITH PATIENT, WILL CONTINUE TO MONITOR.
--- NOTE | 2020-01-03 02:47 | NUR ---
RN ROUNDS PATIENT IS RESTING IN BED, EYES CLOSED, NO SIGNS OF ACUTE DISTRESS, TOLERATING 3L T-BAR, G-TUBE INTACT AND VITAL AF 1.2 @ 60ML/HR, IV TO RIGHT HAND INTACT, IV FLUIDS INFUSING WELL, CONDOM CATHETER IN PLACE AND DRAINING TO GRAVITY, NO CHANGES TO STATUS. SAFETY, FALL, AND ASPIRATION PRECAUTIONS IN PLACE, HOB ELEVATED, CALL LIGHT WITH PATIENT, WILL CONTINUE TO MONITOR.
--- NOTE | 2020-01-03 04:21 | NUR ---
RN ROUNDS PATIENT IS RESTING IN BED, AWAKE, NO SIGNS OF ACUTE DISTRESS, TOLERATING 3L T-BAR, G-TUBE INTACT AND VITAL AF 1.2 @ 60ML/HR, IV TO RIGHT HAND INTACT, IV FLUIDS INFUSING WELL, CONDOM CATHETER IN PLACE AND DRAINING TO GRAVITY, NO CHANGES TO STATUS. SAFETY, FALL, AND ASPIRATION PRECAUTIONS IN PLACE, HOB ELEVATED, CALL LIGHT WITH PATIENT, WILL CONTINUE TO MONITOR.
--- NOTE | 2020-01-03 05:10 | NUR ---
INCONTINENCE CARE PATIENT VOIDED AND HAD A SMALL LOOSE BM. CONDOM CATHETER NOT IN PLACE. INCONTINENCE CARE RENDERED AND NEW CONDOM CATHETER IN PLACE. PATIENT IS CLEAN, DRY AND REPOSITIONED. PATIENT TOLERATED WELL. ALL SAFETY PRECAUTIONS IN PLACE, CALL LIGHT WITH PATIENT, WILL CONTINUE TO MONITOR.
[2020-01-03] MEDS: KCL 20 mEq in D5/0.45NS 1000mL 1,000 ML IV SCH (05:17)
[2020-01-03] MEDS: PIPERACILLIN/TAZO 3.375/DEX-IS 50 ML IV SCH ×2 (05:17→11:06)
[2020-01-03] MEDS: hydrALAZINE HCL 25 MG TABLET GT SCH (05:18)
[2020-01-03] MEDS: CARVEDILOL 25 MG TABLET (COREG) GT SCH (05:18)
--- NOTE | 2020-01-03 06:26 | NUR ---
RN ROUNDS PATIENT IS RESTING IN BED, AWAKE, TOLERATING 3L T-BAR, NO SIGNS OF ACUTE DISTRESS, G-TUBE INTACT AND VITAL AF 1.2 @ 60ML/HR, IV TO RIGHT HAND INTACT, IV FLUIDS INFUSING WELL PRE MD ORDER, CONDOM CATHETER IN PLACE AND DRAINING TO GRAVITY. MAINTAINED SAFETY, FALL, AND ASPIRATION PRECAUTIONS, HOB ELEVATED, CALL LIGHT WITH PATIENT, WILL ENDORSE CARE TO DAYSHIFT RN. Addendum: 01/03/20 at 0631 by Erica Robins RN TITLE: CLOSING NOTE
--- NOTE | 2020-01-03 07:28 | NUR ---
OPENING NOTE Patient resting in the bed. No acute distress. Trach intact to O2 2.5L/min via T-bar. HOB elevated. GT intact, patent, on GT Vital AF 1.2 at 60ml/hr, tolerated well. Skin warm and dry to touch. IV intact to right hand, no redness, no swelling, no drainage. On KCl 20mEQ in D5 1/2 NS at 75ml/hr, infusing well. Condom cath intact, drain gravity with yellow urine. Safety measure maintained. Call light within reached. Bed locked in low position, side rails up, bed alarm on. Will continue to monitor.
[2020-01-03 07:45] VITALS: BP_SYST 144
[2020-01-03] MEDS: [UNRECOGNIZED DRUG - OTHER] GT SCH (09:00)
[2020-01-03] MEDS: DOCUSATE SODIUM 100 MG/10 ML UDC GT SCH (10:13)
[2020-01-03] MEDS: ASCORBIC ACID 500 MG TABLET GT SCH (10:14)
[2020-01-03] MEDS: ASPIRIN 81 MG TAB.CHEW GT SCH (10:14)
[2020-01-03] MEDS: MULTIVITAMINS TAB 1 TABLET GT SCH (10:14)
[2020-01-03] MEDS: LACTOBACILLUS RHAMNOSUS GG 1 CAP CAPSULE GT SCH (10:14)
[2020-01-03] MEDS: LANSOPRAZOLE 30 MG CAPSULE.DR GT SCH (10:14)
--- NOTE | 2020-01-03 10:17 | NUR ---
AM SCHEDULE MED GIVEN Patient resting in the bed. No acute distress. AM schedule med via GT given as ordered, tolerated well. Trach intact to O2 via T-bar. HOB elevated. GT intact, patent, no residual. Continue on GT feeding. IV intact, IVF infusing well. Tawana cath intact, drain gravity. Safety measure maintained. Call light within reached. Continue to monitor.
--- NOTE | 2020-01-03 10:48 | NUR ---
Discharge Planning: DCP confirmed room at [facility] ([phone]) Rm 31B, transportation arranged with [facility] ([phone]) 12:30pm P/U. Patient packet taken to nurse station.
[2020-01-03] MEDS: cloNIDine HCL 0.1 MG TABLET GT PRN (11:07)
--- NOTE | 2020-01-03 11:09 | NUR ---
SB=405/95 Catapres 0.1mg given via GT as ordered. B/P=152/95, no acute distress. HOB elevated. Trach intact to O2 via T-bar. GT intact, continue on GT feeding, tolerated well. Condom cath intact, drain gravity. Safety measure maintained. Call light within reached. Bed locked in low position, side rails up, bed alarm on. Continue to monitor.
[2020-01-03 12:00] VITALS: BP_SYST 152
--- NOTE | 2020-01-03 12:10 | NUR ---
RECHECKED NL=987/92 Patient resting in the bed. No acute distress. Trach intact to O2 via T-bar. Continue on GT feeding. IV intact, IVF infusing well. Safety measure maintained. Call light within reached. Bed locked in low position, side rails up, bed alarm on. Continue to monitor.
[2020-01-03 12:25] VITALS: BP_SYST 146
--- NOTE | 2020-01-03 12:25 | NUR ---
REPORT GIVEN Called Evan Shearer, report given to JAIRO Joseph.
--- NOTE | 2020-01-03 13:10 | NUR ---
PT TRANSFERRED Report given to JAIRO Joseph at 1225. Transfer packet with Transfer Orders and Medication Reconciliation form given to EMT with report. Exitcare provided. [facility] ID band removed, replaced with ID band with pt's name and . IV intact, no redness, no swelling, patent. Keep it for IV antibiotic for SNF. All belongings sent with patient. Patient left floor via gurney escorted by EMT in no distress.
== END 2020-01-03 13:10 | DRG 137 ==
LOC: SED 19:39 → STU 22:47 → SMU 01-01 16:21
PROVIDERS: ADMIT Family Medicine; ATTEND Family Medicine
DX: J69.0 Pneumonitis due to inhalation of food and vomit (principal); G82.50 Quadriplegia, unspecified; J96.10 Chronic respiratory failure, unspecified whether with hypoxia or hypercapnia; I10 Essential (primary) hypertension; Z93.0 Tracheostomy status; Z86.73 Personal history of transient ischemic attack (TIA), and cerebral infarction without residual deficits; Z93.1 Gastrostomy status; Z79.899 Other long term (current) drug therapy
CPT/HCPCS: 36415; 71045; 80048; 80053; 81000-TC; 83605; 84484; 85007; 85025; 85027; 85610-TC; 85730-TC; 87040-TC; 87081; 87086; 93005; 94640; 94760; 96365; 99285; G0378; J1650; J1956; J2543; J3370; J7050; J7060; J7612

== ENCOUNTER 2020-03-20 20:36 | Emergency (ER) | payer OTHER ==
[~2020-03-20] VITALS: Ht 172.7 cm; Wt 81.6 kg
[~2020-03-20 20:36] MED LIST: ACID1CAP GT; ALBU2.5V7 INH; ASA81 GT; ASCO500S10 GT; ATROVENT IH; CARV25TA55 GT; CAT.1 GT; CHLO237L3 DT; CLONIDINE PATCH TD; DOCU-144 GT; HYDR-4037 GT; LANS15CA14 GT; MULT-976 GT; TYLL650 GT; [UNRECOGNIZED DRUG - REMARK] GT
[2020-03-20 20:41] VITALS: BP_SYST 126
[2020-03-20] MEDS ORDERED: ACETAMINOPHEN 650 MG SUPP.RECT RC ONE (21:00)
[2020-03-20 21:11] LABS: BASOPHILS # (AUTO) 0.1 K/uL (0.0-0.2); BASOPHILS % (AUTO) 0.8 % (0.0-2.0); EOSINOPHILS # (AUTO) 0.6 K/uL (0.0-0.4); EOSINOPHILS % (AUTO) 6.4 % (0.0-4.0); HEMOGLOBIN 13.3 g/dL (14.0-18.0); LYMPHOCYTES # (AUTO) 1.9 K/uL (1.0-5.5); LYMPHOCYTES % (AUTO) 19.1 % (20.5-51.5); MEAN CORPUSCULAR HEMOGLOBIN 28 pg (27-31); MEAN CORPUSCULAR HGB CONC 33 % (32-36); MEAN CORPUSCULAR VOLUME 85 fL (79.0-98.0); MONOCYTES % (AUTO) 9.9 % (1.7-9.3); NEUTROPHILS # (AUTO) 6.4 K/uL (1.8-7.7); NEUTROPHILS % (AUTO) 63.8 % (40.0-70.0); PLATELET COUNT (AUTO) 399 K/uL (130-430); RED BLOOD CELL COUNT(AUTO) 4.71 MIL/uL (4.2-6.2); RED CELL DISTRIBUTION WIDTH 13.7 % (9.0-15.0); WHITE BLOOD COUNT (AUTO) 10.1 K/uL (4.8-10.8)
[2020-03-20 21:20] LABS: CALCIUM 8.4 mg/dL (8.4-11.0); CREATININE 0.85 mg/dL (0.55-1.30); POTASSIUM 4.4 mmol/L (3.5-5.1)
[2020-03-20 21:24] LABS: PROTHROMBIN TIME 9.7 SECS (9.5-12.5)
[2020-03-20 21:25] LABS: TOTAL BILIRUBIN 0.5 mg/dL (0.0-1.0)
[2020-03-20 22:04] LABS: BILIRUBIN,URINE NEGATIVE (NEGATIVE); BLOOD, URINE NEGATIVE (NEGATIVE); CLARITY/URINE CLEAR (CLEAR); COLOR,URINE YELLOW (YELLOW); GLUCOSE,URINE NEGATIVE (NEGATIVE); KETONES,URINE NEGATIVE (NEGATIVE); LEUKOCYTE ESTERASE ,URINE NEGATIVE (NEGATIVE); NITRITE, URINE NEGATIVE (NEGATIVE); PH,URINE 6.5 (5.0-8.0); PROTEIN URINE NEGATIVE (NEGATIVE); UROBILINOGEN,URINE 0.2 (0.2-1.0)
[2020-03-20] MEDS ORDERED: KETOROLAC TROMETHAMINE 30 MG VIAL IVP ONE (22:45)
[2020-03-20 23:30] VITALS: BP_SYST 119
== END 2020-03-20 23:30 | disposition home or self-care (01) ==
LOC: SED 20:36
DX: S42.294A Other nondisplaced fracture of upper end of right humerus, initial encounter for closed fracture (principal); I10 Essential (primary) hypertension; Z86.79 Personal history of other diseases of the circulatory system; Z79.899 Other long term (current) drug therapy; Z79.82 Long term (current) use of aspirin; X58.XXXA Exposure to other specified factors, initial encounter; Y93.89 Activity, other specified; Y92.89 Other specified places as the place of occurrence of the external cause; Y99.8 Other external cause status
CPT/HCPCS: 29105; 36415; 73060; 73090; 80053; 81003; 82962; 85025; 85610; 85730; 87081; 93971; 96374; 99285; J1885